=== PATIENT | female | born 1995 | race Caucasian/White ===

== ENCOUNTER 2024-12-01 11:15 | Emergency (ER) | payer SELFPAY ==
[2024-12-01 11:26] VITALS: BP 129/79; PULSE 104; RESP 16; TEMP 36.3; O2SAT 98
--- NOTE | 2024-12-01 11:36 | ED.GENADULT ---
HPI - General Adult General Chief complaint: Urogenital-Female Stated complaint: vagina care Source: patient Mode of arrival: ambulatory Limitations: no limitations History of Present Illness HPI narrative: Patient presents for evaluation of vaginal discomfort. Symptom onset 3 days ago. She states she was experiencing labial swelling with intercourse in the past and had her inner labia surgically removed five years ago. Three days ago she noted clear vaginal discharge with vaginal swelling. She also reports labial swelling and dysuria, without other urinary symptoms. She denies any fever, chills, nausea, vomiting. She is sexually active with male partners. Her ex-boyfriend, which whom she had sex about one week ago, tested positive for gonorrhea. She has an IUD but is not sure when it was placed. States LMP five years ago. She admits to fentanyl and methamphetamine use. She is planning on going to [facility] tomorrow for assistance with substance abuse. Related Data Allergies Allergy/AdvReac Type Severity Reaction Status Date / Time No Known Allergies Allergy Verified 12/01/24 11:26 Review of Systems Review of Systems: CONSTITUTIONAL: Denies fever, chills, or sweats. EYES: Denies visual changes, redness, or discharge. ENT: Denies rhinorrhea, congestion, sore throat, or otalgia. CARDIOVASCULAR: Denies chest pain, palpitations, or edema. RESPIRATORY: Denies cough or dyspnea. GASTROINTESTINAL: Denies abdominal pain, nausea, vomiting, or diarrhea. GENITOURINARY: Reports labial swelling, clear vaginal discharge and dysuria. Denies vaginal bleeding and other urinary symptoms. SKIN: Denies rash or itching. MUSCULOSKELETAL: Denies back pain, joint pain, or myalgia. NEUROLOGIC: Denies headache, numbness, dizziness, or weakness. PSYCHIATRIC: Denies anxiety or depression. [facility] Past Medical History Medical History No pertinent past medical history Surgical History Surgical History H/O vaginal surgery Family History Family History Mother Family history non-contributory Social History Social History (Reviewed 12/01/24 @ 11:54 by Keven Cruz, [facility], [place] Alcohol intake: current Alcohol use details: social Substance use: current Substance use type: amphetamines and opiates Exam Narrative: GENERAL: Well-appearing, well-nourished, and in no acute distress. HEAD: Normocephalic, atraumatic. EYES: PERRLA and EOMI. ENT: Nares clear, no rhinorrhea or epistaxis. Mucous membranes moist. Overall poor dentition. Multiple fractured teeth, eroded down to the gumline.. Bilateral TMs pearly bernardo nonbulging NECK: Supple. No adenopathy or masses. No carotid bruits or JVD CHEST: Clear to auscultation. No respiratory distress. No wheezes rales or rhonchi HEART: Regular rate and rhythm. No murmur heard. Normal peripheral pulses. ABDOMEN: Soft, nontender, nondistended, normal active bowel sounds. GENITAL: No external genital lesions. No adnexal tenderness. No cervical motion tenderness. Moderate amount of white discharge noted in vaginal vault. EXTREMITIES: Normal range of motion. No edema. SKIN: Warm, dry, no rash. NEURO: No focal deficits. Alert and oriented x3. PSYCH: Normal mood and affect. Course Course Emergency Course: This is a 29-year-old female who presented for evaluation of vaginal discharge. Will treat for sexually transmitted infections. She was given Rocephin while here. Discharge with Flagyl, doxycycline and will also start Macrobid for evidence of urinary tract infection. She will also receive prescription for fluconazole that she can take at the completion of her antibiotic course. Increase hydration. Go to the ER for worsening symptoms. Patient in agreement with plan of care. Level of Care: Express Care Visit Vital Signs Vital signs: Vital Signs Temperature 36.3 C L 12/01/24 11: Pulse Rate 104 H 12/01/24 11: Respiratory Rate 16 12/01/24 11: Blood Pressure 129/79 12/01/24 11: Pulse Oximetry 98 12/01/24 11:26 Oxygen Delivery Room Air 12/01/24 11: Temperature 36.3 C L 12/01/24 11: Pulse Rate 104 H 12/01/24 11: Respiratory Rate 16 12/01/24 11:26 Blood Pressure 129/79 12/01/24 11:26 Pulse Oximetry 98 12/01/24 11:26 Oxygen Delivery Room Air 12/01/24 11:26 Medical Decision Making Vital Signs Vital Signs: Vital Signs Temperature 36.3 C L 12/01/24 11:26 Pulse Rate 104 H 12/01/24 11:26 Respiratory Rate 16 12/01/24 11:26 Blood Pressure 129/79 12/01/24 11:26 Pulse Oximetry 98 12/01/24 11:26 Oxygen Delivery Room Air 12/01/24 11:26 Temperature 36.3 C L 12/01/24 11:26 Pulse Rate 104 H 12/01/24 11:26 Respiratory Rate 16 12/01/24 11:26 Blood Pressure 129/79 12/01/24 11:26 Pulse Oximetry 98 12/01/24 11:26 Oxygen Delivery Room Air 12/01/24 11:26 Lab Data Labs: Lab Results 12/01/24 Range/Units 11:48 POC Urine Color Yellow POC Urine Clarity Cloudy POC Urine pH 6.5 POC Ur Specif [place] 1.025 POC Urine Protein Negative (Negative) POC Ur Glucose (UA) Negative (Negative) POC Urine Ketones Negative (Negative) POC Urine Blood Trace (Negative) POC Urine Nitrite Positive (Negative) POC Urine Bilirubin Negative (Negative) POC Urine Urobilinogen 1.0 POC U Leukocyte Esteras 1+ (Negative) POC Urine HCG, Qual Negative (Negative) Discharge Plan Discharge Clinical Impression: UTI (urinary tract infection), Exposure to sexually transmitted infection Patient Disposition: Home Condition: Stable Instructions: Antibiotic Form, Safe Sex Practices (ED), Urinary Tract Infection in Women (ED) Additional Instructions: PLEASE HAVE COMPREHENSIVE STI EXAMINATION PERFORMED. HAVE ALL SEX PARTNERS EVALUATED AND TREATED DO NOT HAVE INTERCOURSE UNTIL A WEEK AFTER YOU AND SEX PARTNERS COMPLETE ANTIBIOTIC COURSE Patient Language: Czech Prescriptions: New doxycycline hyclate 100 mg capsule 100 mg PO BID 7 Days Qty: 14 0RF metronidazole 500 mg tablet 500 mg PO Q12H 7 Days Qty: 14 0RF fluconazole 150 mg tablet 150 mg PO ONCE Qty: 1 0RF Rx Instructions: as a single dose at completion of antibiotics in one week nitrofurantoin monohyd/m-cryst [Macrobid] 100 mg capsule 100 mg PO Q12H 7 Days Qty: 14 0RF Rx Instructions: must administer with a meal/food Follow-up/Referrals: Juvenal Rose MD [Physician, Family Practice] Time of Disposition: 12:20
[2024-12-01 11:51] LABS: BEDSIDEPREGUCG Negative (Negative); EDUAAPPEAR Cloudy; EDUABILI Negative (Negative); EDUABLOOD Trace (Negative); EDUACOLOR1 Yellow; EDUAGLUCOSE Negative (Negative); EDUAKETONE Negative (Negative); EDUALEUKO 1+ (Negative); EDUANITRATE Positive (Negative); EDUAPH 6.5; EDUAPROTEIN Negative (Negative); EDUASPGRAVITY 1.025; EDUAUROBILI 1.0
[2024-12-01] MEDS: cefTRIAXone 500 MG, LIDOCAINE 1% LOCAL INJ 1 ML IM (12:20)
[2024-12-01 20:32] LABS: Trichomonas Vag PCR NOT DETECTED (NOT DETECTE)
== END 2024-12-01 12:29 | disposition home or self-care (01) ==
PROVIDERS: Emergency Provider Nurse Practitioner
DX: N39.0 Urinary tract infection, site not specified (principal); Z20.2 Contact with and (suspected) exposure to infections with a predominantly sexual mode of transmission
CPT/HCPCS: 81003; 81025; 81513; 87077; 87086; 87186; 87491; 87591; 87661; 87798; 96372; 99203; G0463; J0696; J2003

== ENCOUNTER 2025-01-12 12:28 | Emergency (ER) | payer SELFPAY ==
[2025-01-12 12:39] VITALS: BP 125/81; PULSE 101; RESP 22; TEMP 37.6; O2SAT 97
--- OUTSIDE RECORDS SUMMARY | 2025-01-12 13:05 | XMS_ITS | Clinical Summary ---
Author Organization [facility] Address [address] [place] [address] Care Team Providers Care Insole Lip Turner Name Role Phone Jeanmarie Herrera MD Primary Care Provider [phone] Source Comments [facility],non-owned Affiliates and Associated Physician Practices is amultiple site organization consisting of ambulatory clinics and hospital sitesin [place], [place], [place] and [place]. This disclosure is being madepursuant to the Care Everywhere program and may not contain all information available regarding this patient. Last updated 17.[facility] Allergies No known active allergies Medications * Be aware that medications may not be up to date on this document. Alwaysverify current medications with the patient. polyethylene glycol 3350 (MIRALAX) 17 GM/SCOOP powder Take 17 g by mouth once daily 11/13/2018 Active Active Problems Problem Noted Date Diagnosed Date Recurrent major depressive disorder 11/11/2019 Generalized anxiety disorder 11/11/2019 Smoker 11/11/2019 History of substance abuse 11/11/2019 Resolved Problems Problem Noted Date Diagnosed Date Resolved Date Allergic reaction 04/06/2013 11/11/2019 Vomiting 12/06/2011 11/11/2019 Diarrhea 12/06/2011 11/11/2019 Immunizations Immunization Administration Dates Next Due DTaP VACCINE IM (6wk-6yrs) 06/02/2007,,06/02/1999,1998,02/22/1998,1997 HEP A PEDS 2 DOSE 04/09/2007,04/25/2006 HEP B VACCINE, PED/ADOL 06/02/1999,1997, HIB VACCINE 07/18/2001 HIB-HAEMOPHILUS INFLUENZAE B CONJUGATE VACCINE 04/25/1998,02/22/1998,1997 Human Papilloma Virus Jeremías valent Vaccine 08/20/2011 MMR 09/29/2002,06/02/1999 POLIO IPV 09/29/2002, 0,02/22/1998,1997 TDAP (7yrs+) 08/20/2011 VARICELLA 04/25/2006,07/18/2001 Family History Medical History Relation Name Comments Other Brother cyst Other - Hepatic/Liver Father CAD (Coronary Artery Disease) Mother Diabetes - Type 2 Mother Relation Name Status Comments Brother Father Mother Alive Sister Alive Social History Tobacco Use Types Packs/Day Years Used Date Smoking Tobacco: Every Day Cigarettes Smokeless Tobacco: Never Alcohol Use Standard Drinks/Week Comments No 0 (1 standard drink = 0.6 oz pur e alcohol) Comments No Sex and Gender Information Value Date Recorded Sex Assigned at Not on file 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 Gender Identity Not on file Sexual Orientation Not on file Last Filed Vital Signs Vital Sign Reading Time Taken Comments Blood Pressure 118/58 11/11/2019 3:00 PM CDT Pulse 100 11/11/2019 2:35 PM CDT Temperature 36.5 C (97.7 F) 09/21/2019 1:01 PM CDT Respiratory Rate 20 11/11/2019 2:35 PM CDT Oxygen Saturation 100% 11/11/2019 2:35 PM CDT Inhaled Oxygen Concentration - - Weight 58.1 kg (128 lb 1.6 oz) 11/11/2019 2:35 P M CDT Height 170.2 cm (5' 7) 11/11/2019 2:35 PM CDT Body Mass Index 20.06 11/11/2019 2:35 PM CDT Plan of Treatment Health Maintenance Due Date Last Done Comments HPV VACCINE (2 - 2-dose series) 02/20/2012 08/20/2011 HIV SCREENING 2012 HEPATITIS C SCREENING 09/18/2015 DTAP/TDAP/TD VACCINES (7 - Td or Tdap) 08/19/2021 08/20/2011, 06/02/2007, 09/29/2002, Additional history exists DEPRESSION SCREENING 02/12/2024 COVID-19 VACCINE ( season) 2024 INFLUENZA VACCINE (#1) 2024 ZOSTER VACCINE (1 of 2) 09/23/2047 HEPATITIS B VACCINE Completed 06/02/1999, 1997, 1997 HIB VACCINE Completed 07/18/2001, 04/11, 02/22/1998, Additional history exists MENINGOCOCCAL (Group B) VACCINE SHARED DECISION-MAKING Aged Out No longer eligible based on patient's age to complete this topic MENINGOCOCCAL GROUPS A/C/Y/W VACCINE Aged Out No longer eligible based on patient's age to complete this topic PNEUMOCOCCAL VACCINE Aged Out No long er eligible based on patient's age to complete this topic Insurance [place] MEDICA[place] [facility] [place] Care Teams Insole Lip Turner Relationship Specialty Start Date End Date Jeanmarie Herrera MD [address] [id number] PCP - General Family Medicine 11/11/19
--- NOTE | 2025-01-12 13:27 | ED.GENADULT ---
HPI - General Adult General Chief complaint: Extremity Injury, Upper Stated complaint: Left Arm Injury Source: patient and family Mode of arrival: ambulatory Limitations: no limitations History of Present Illness HPI narrative: Patient presents for evaluation of pain, redness, and swelling to left forearm. Symptom onset 4 days ago. She injected methamphetamine in the affected area. She reports fever and chills. Denies nausea vomiting. She gives conflicting responses to whether she has diabetes. She is here in the company of her uncle. Related Data Home Medications ?Medication ?Instructions ?Recorded ?Confirmed ?Last Taken ?Type No Home Medications 01/12/25 01/12/25 Unknown History Allergies Allergy/AdvReac Type Severity Reaction Status Date / Time No Known Allergies Allergy Verified 01/12/25 12:47 Review of Systems Review of Systems: CONSTITUTIONAL: Denies fever, chills, or sweats. EYES: Denies visual changes, redness, or discharge. ENT: Denies rhinorrhea, congestion, sore throat, or otalgia. CARDIOVASCULAR: Denies chest pain, palpitations, or edema. RESPIRATORY: Denies cough or dyspnea. GASTROINTESTINAL: Denies abdominal pain, nausea, vomiting, or diarrhea. GENITOURINARY: Denies dysuria or hematuria. SKIN: reports redness to the left forearm MUSCULOSKELETAL: reports pain and swelling in the left forearm NEUROLOGIC: Denies headache, numbness, dizziness, or weakness. PSYCHIATRIC: Denies anxiety or depression. [facility] Past Medical History Medical History No pertinent past medical history Surgical History Surgical History H/O vaginal surgery Family History Family History Mother Family history non-contributory Social History Social History Alcohol intake: current Alcohol use details: social Substance use: current Substance use type: amphetamines and opiates Exam Narrative: GENERAL: Pt appears chemically impaired. Disheveled appearance HEAD: Normocephalic, atraumatic. EYES: PERRLA and EOMI. ENT: Nares clear, no rhinorrhea or epistaxis. Mucous membranes moist. Oropharynx without tonsillar hypertrophy exudate or other lesions. Bilateral TMs pearly bernardo nonbulging NECK: Supple. No adenopathy or masses. No carotid bruits or JVD CHEST: Clear to auscultation. No respiratory distress. No wheezes rales or rhonchi HEART: Regular rate and rhythm. No murmur heard. Normal peripheral pulses. ABDOMEN: Soft, nontender, nondistended, normal active bowel sounds. EXTREMITIES: Normal range of motion. There is swelling present to left forearm SKIN: there is erythema her noted throughout the left forearm with an area of fluctuance which is about 6 cm x 6 cm in size NEURO: No focal deficits. Alert and oriented x3. PSYCH: Anxious. Provides inappropriate responses to some posed question Course Course Emergency Course: This is a 29-year-old female who presented for evaluation of redness, swelling and pain to the left forearm. She has an obvious cellulitis. I do not think she will be a great candidate for oral medication due to concern for non adherence secondary to illicit drug use. I recommended she be transferred to the hospital for further evaluation. [facility] is her facility of choice. I contacted the ER at [facility] and spoke with RN, August, who indicated that Dr. Peace would accept pt for transfer there. Pt transferred via private vehicle. Level of Care: Express Care Visit Vital Signs Vital signs: Vital Signs Temperature 37.6 C 01/12/25 12:39 Pulse Rate 101 H 01/12/25 12:39 Respiratory Rate 22 H 01/12/25 12:39 Blood Pressure 125/81 01/12/25 12:39 Pulse Oximetry 97 01/12/25 12:39 Oxygen Delivery Room Air 01/12/25 12:39 Temperature 37.6 C 01/12/25 12:39 Pulse Rate 101 H 01/12/25 12:39 Respiratory Rate 22 H 01/12/25 12:39 Blood Pressure 125/81 01/12/25 12:39 Pulse Oximetry 97 01/12/25 12:39 Oxygen Delivery Room Air 01/12/25 12:39 MDM Differential Diagnosis Differential Diagnosis: cellulitis versus retained foreign body versus abscess versus other Discharge Plan Discharge Clinical Impression: Cellulitis of arm, left, Methamphetamine use Patient Disposition: Acute Care Hospital Condition: Stable Patient Language: Brazilian Prescriptions: No Action No Home Medications Follow-up/Referrals: PHYSICIAN,EXTRUSION BENDER [Primary Care Provider, Internal Medicine] Time of Disposition: 13:34
== END 2025-01-12 13:38 | disposition short-term general hospital (02) ==
PROVIDERS: Emergency Provider Nurse Practitioner
DX: L03.114 Cellulitis of left upper limb (principal); F15.90 Other stimulant use, unspecified, uncomplicated
CPT/HCPCS: 99212; G0463